=== PATIENT | female | born 2000 | race Asian ===

== ENCOUNTER 2022-04-08 06:18 | Day surgery (SDC) | payer BC ==
[2022-04-07 09:28] VITALS: BMI 23.1
[2022-04-08] MEDS ORDERED: Lidocaine 1% (PF) 30 ML VIAL ONE (06:50)
[2022-04-08] MEDS ORDERED: Heparin 10,000 UNITS/ 10 ML VIAL ONE (06:50)
[2022-04-08] MEDS ORDERED: Dexmedetomidine 200 MCG/2 ML VIAL ONE (07:42)
[2022-04-08] MEDS ORDERED: Ketamine 50 MG/ML (10ML VIAL) ONE ×2 (07:42→09:25)
[2022-04-08] MEDS ORDERED: FENTANYL 50 MCG/ML 1 ML VIAL ONE ×2 (07:47→08:57)
[2022-04-08] MEDS ORDERED: Midazolam HCl 2 mg/2 ml Vial ONE ×2 (07:48→09:23)
[2022-04-08] MEDS ORDERED: Propofol 500 MG/50 ML VIAL ONE ×2 (07:48→08:57)
[2022-04-08] MEDS ORDERED: Lidocaine 1% PF 5 ML VIAL ONE (08:00)
[2022-04-08] MEDS ORDERED: PHENYLEPHRINE-NS 100 MCG/ML 10 ML SYRINGE ONE (08:00)
== END 2022-04-08 14:54 | disposition home or self-care (01) ==
LOC: SDC 06:18
PROVIDERS: ATTEND Internal Medicine Cardiovascular Disease
PROC: 02583ZZ Destruction of Conduction Mechanism, Percutaneous Approach (ICD-10-PCS; principal; 2022-04-08)
PROC: 02K83ZZ Map Conduction Mechanism, Percutaneous Approach (ICD-10-PCS; principal; 2022-04-08)
PROC: 4A023FZ Measurement of Cardiac Rhythm, Percutaneous Approach (ICD-10-PCS; principal; 2022-04-08)
PROC: 4A0234Z Measurement of Cardiac Electrical Activity, Percutaneous Approach (ICD-10-PCS; principal; 2022-04-08)
DX: I47.1 Supraventricular tachycardia (principal); Z79.899 Other long term (current) drug therapy
CPT/HCPCS: 93005; 93621; 93653; C1730; C1760; C1894; C2630; J1644; J2001; J2250; J2704; J3010